=== PATIENT | female | born 1980 | race Caucasian/White ===

== ENCOUNTER → 2022-12-03 | Outpatient (CLI) | payer OTHER, SELFPAY ==
[2022-12-03 13:51] LABS: Mucous, Urine 0 SEEN /hpf (<or=2+); Red Blood Cells-Urine 0 SEEN /hpf (0-5)
[2022-12-03 13:54] LABS: Color, Urine Yellow (Yellow); Glucose, Dipstick Normal (Normal); Ketone-Dipstick 15 mg/dl (Negative); Leukocyte Esterase-Dipstick 25 /ul (Negative); Nitrite-Dipstick Negative (Negative); Occult Blood-Urine 10 /ul (Negative); Protein-Dipstick Negative (Negative); Specific Gravity, Urine 1.025 (1.002-1.030); Urine Bilirubin Dipstick Negative (Negative); Urine Clarity Clear (Clear); Urine Urobilinogen Normal (Normal)
[2022-12-03 14:12] LABS: Bacteria 1+ /hpf (None Seen); Squamous Epithelial Cells - UA 5-10 SEEN /hpf (5-10); White Blood Cells 0-5 SEEN /hpf (0-5)
== END | disposition home or self-care (01) ==
PROVIDERS: Visit Provider Physician Assistant Surgical
DX: R30.0 Dysuria (principal)
CPT/HCPCS: 81001; 87086; 87088

== ENCOUNTER 2023-01-26 07:04 | Emergency (ER) | payer OTHER, SELFPAY ==
[2023-01-26 07:05] VITALS: BP 138/78; PULSE 81; RESP 14; TEMP 36.4; O2SAT 100; BMI 24.7
--- NOTE | 2023-01-26 07:42 | EX.ED.DYSGE1 ---
HPI History of Present Illness Chief Complaint: General Illness Detail of Chief Complaint: Sore throat, headache Informant: patient Onset/Context/Timing Onset: Yesterday Context: Gradual Onset Timing: Continuous Quality: Raw Location: Throat Worsened by: Swallowing Relieved by: Salt water gargle Narrative Narrative: Patient presents with a sore throat and headache that began yesterday. Patient states it came on gradually. Patient states it has been constant. Patient describes her pain as raw in her throat. Patient states her pain is worse with swallowing. Patient states she did some salt water gargles which helped. Patient states that she was with a friend recently who tested positive for COVID-19. Patient states she did a home COVID-19 test and it was faintly positive. Patient does admit to some general myalgias. Patient denies any cough. Patient states her throat pain is worse on the right. [facility]SH [facility], [facility] Medical History Dysuria History of recurrent UTI (urinary tract infection) No active medical problems Home Medications phenazopyridine 100 mg tablet (Pyridium) 100 mg PO TID PRN pain 6 doses #7 tabs 12/03/22 [Rx Last Taken Unknown] Allergy/AdvReac Type Severity Reaction Status Date / Time povidone-iodine Allergy Mild rash Verified 01/26/23 07:07 [From Betadine] Family History (Updated 12/03/22 @ 09:41 by Elo De Santiago) Other Cancer Surgical History No pertinent past surgical history no surgical history Social History Smoking Status: Never smoker ROS ROS ED Constitutional Constitutional ED: Denies chills or fever(s) Eyes Eyes: Denies blurry vision or change in vision ENT ENT ED: Reports sore throat; Denies rhinorrhea Cardiovascular Cardiovascular: Denies chest pain or palpitations Respiratory/Chest Respiratory/Chest: Denies cough or dyspnea Gastrointestinal Gastrointestinal: Denies nausea or vomiting Genitourinary Genitourinary ED: Denies dysuria or hematuria Musculoskeletal Musculoskeletal: Reports myalgias; Denies back pain or neck pain Integumentary Denies abscess or rash Neurologic Neurologic: Denies headache(s) or weakness Allergic/Immunologic Allergic/Immunologic ED: Denies mouth swelling or urticaria EXAM Physical Exam Const Vital Signs: 01/26/23 07:05 01/26/23 07:10 Temperature 97.5 F L Temperature Source Temporal Pulse Rate 81 Respiratory Rate 14 Respiratory Pattern Normal Blood Pressure 138/78 H Blood Pressure Mean 98 Pulse Ox 100 Oxygen Delivery Method Room Air Positive well nourished and well developed General Appearance ED: well developed and NAD HEENT Reports TM's clear and moist mucous membranes HEENT Narrative: Oropharynx is mildly erythematous. There are no exudates noted. There is no unilateral swelling noted. Tympanic membranes are clear bilaterally. Tympanic Membrane ED: Yes TM's clear bilateral Neck supple and no JVD Neck Narrative: There is mild tenderness on the right. There is some mild anterior cervical lymphadenopathy noted. General: tenderness Resp normal respiratory effort and clear to auscultation bilaterally Cardio regular rate, regular rhythm and no murmurs GI Palpation: soft Extremity normal to inspection Neuro oriented x3, CN's II-XII intact bilaterally and no sensory deficits noted Sensorium / Orientation: alert Motor Exam: strength 5/5 throughout Psych mental status grossly normal MDM MDM MDM Narrative Medical decision making narrative: Differential diagnosis includes COVID-19, influenza, strep pharyngitis, and viral pharyngitis. COVID-19 rapid antigen will be obtained to assess for COVID-19 infection. Influenza A and influenza B antigens will be obtained to assess for influenza infection. Rapid strep will be obtained to assess for strep pharyngitis. Lab Data Attestation: I reviewed the patient's lab results. Lab results narrative: COVID-19 rapid antigen was reviewed and was negative. Influenza A and influenza B antigens were reviewed and were negative. Rapid strep was reviewed and was negative. Treatment and Re-Evaluation :: Patient was advised of her findings. Patient was advised that this is most likely a viral pharyngitis. Patient was instructed to drink plenty of fluids. Patient was instructed take Tylenol or ibuprofen as needed for any pain or fevers. Patient was instructed to follow-up with her primary care physician in 5 to 7 days. Patient understood and was agreeable with the plan. All questions were answered. Discharge Plan Triage Chief Complaint: General Illness ED Provider: Israel Hercules Dx/Rx/DC Orders Clinical Impression: Acute viral pharyngitis Instructions: ED Pharyngitis, Viral Prescriptions: No Action phenazopyridine [Pyridium] 100 mg tablet 100 mg PO TID PRN (Reason: pain) Qty: 7 0RF Rx Instructions: administer with a full glass of water after each meal Primary Care Provider: Care Physician,No Primary Referrals: Lavern Brown MD [Med Staff - [employer]] - 5-7 Days Care Physician,No Primary [Primary Care Provider] - Disposition Disposition: Home, Self Care
--- NOTE | 2023-01-26 07:51 | NURSING ---
Swabs obtained and sent to lab
== END 2023-01-26 08:43 | disposition home or self-care (01) ==
PROVIDERS: Emergency Provider Emergency Medicine; Visit Provider Emergency Medicine
DX: J02.8 Acute pharyngitis due to other specified organisms (principal)
CPT/HCPCS: 87428; 87880; 99282